=== PATIENT | male | born 1945 | race Caucasian/White ===

== ENCOUNTER → 2018-03-22 | Day surgery (SDC) | payer MEDICARE, OTHER ==
[~2018-03-22] MED LIST: BUPIVAC MPF-EPI 0.5%-1:200000 30 ML VIAL. ONE; LISI10TA2 PO; MECL25TA3 PO; SIMV10TA3 PO
[2018-03-22 12:43] VITALS: BP 129/76
--- NOTE | 2018-03-22 12:45 | PDOC ---
BRIEF OPERATIVE NOTE Date: Mar 22, 2018 Pre-Op Diagnosis skin lesion left calf Post-Op Diagnosis same Procedure Performed excision Surgeon Edgardo Anesthesia Type: Local Blood Loss minimal Specimens Obtained skin and subcutaneous tissue specimen 4x1.5x1 cm lesion 1x1x0.5 cm Findings no deep invasion Complications none Additional Remarks # [id number] MIMA CLEMENS MD Mar 22, 2018 12:45
--- NOTE | 2018-03-22 12:46 | DISCH ---
DISCHARGE INSTRUCTIONS-DC Condition on Discharge Condition on Discharge: Stable Activity after Discharge Activity Instructions for Disc: No restrictions Weight Bearing Status after Di: No restrictions Diet after Discharge Diet after Discharge: Regular Wound/Incision Care Wound/Incision Care: Ice to area for comfort Other wound/incision instructi: meghna wise Monday Follow-Up Follow up with: Edgardo next week MIMA CLEMENS MD Mar 22, 2018 12:46
--- NOTE | 2018-03-22 14:20 | OP ---
DATE OF SURGERY: 03/22/2018 PREOPERATIVE DIAGNOSIS: Skin lesion, left calf. POSTOPERATIVE DIAGNOSIS: Skin lesion, left calf. PROCEDURE: Excision of skin lesion, left calf. SURGEON: Mima Clemens MD ANESTHESIA: Local. SPECIMENS: Skin and subcutaneous tissue. SPECIMEN SIZE: 4 x 1.5 x 1 cm. LESION SIZE: 1 x 1 x 0.5 cm. DESCRIPTION OF PROCEDURE: The patient was brought to the operating suite, placed in the right lateral decubitus position, and the left calf prepped and draped in usual sterile fashion. The elliptical skin incision around the lesion, which had been made in preop with the patient's assistance was infiltrated with 0.5% Marcaine with epinephrine. Skin incised and the lesion removed intact. Hemostasis with cautery. Wound closed with interrupted inverted 3-0 Vicryl in the subcutaneous tissue, subcuticular 4-0 Monocryl with Steri-Strips for the skin. Sterile dressing applied. The patient tolerated procedure well and was taken back to the preop area in stable condition. MIMA CLEMENS MD DR: SARA/luis JOB#: [id number] / [id number]
--- NOTE | 2018-03-27 15:09 | PATHOLOGY ---
[facility] Accession Number: [id number] . 01 Material submitted: . EXCISION SKIN LESION, LEFT CALF . 01 Clinical history: . Skin lesion, left calf . 02 Diagnosis: Skin lesion, left calf, excision: - SQUAMOUS CELL CARCINOMA, WELL-DIFFERENTIATED. - Completely excised. . (MAP:[facility]; 03/27/18) [facility]03/[facility]2018 . 02 Comment: Co-review: Dr. Jessica Kennedy. . (MAP:[facility]; 03/27/18) . 02 Electronically signed: . Heron Orozco MD, Pathologist NPI- [id number] . 01 Gross description: . The specimen is received in formalin, labeled "Aldair Cash and skin lesion left calf", is an unoriented ellipse of salgado white skin 4.0 x 1.6 x 0.4 cm. The skin surface has a centrally located summers-white, firm lesion measuring 1.0 x 1.0 x 0.3 cm with central necrotic foci. The lesion is 0.2 cm from the closest peripheral margin. The specimen is inked black, serially section into 12 pieces to show a summers-white, friable cut surface for the lesion and the remaining summers-white. The specimen is entirely submitted in A1-A4 with lesion in A2 and tips in A4. ([facility]; 03/23/2018) [facility] . 02 Pathologist provided ICD-10: C44.629 . 02 CPT . 062829 Specimen Comment: A courtesy copy of this report has been sent to Specimen Comment: [phone], . Specimen Comment: Report sent to / DR HERNANDEZ Specimen Comment: Report updated to correct patient Specimen Comment: A duplicate report has been generated due to demographic update Specimen Comment: of the patient's Date of , Age, Gender, and/or Specimen Date. Specimen Comment: Please review patient results, reference intervals, and calculated Specimen Comment: results that may have been affected by this change. Performed at: [address] [id number] MD Lv Peng MD Phone: [phone] Performed at: 02 [facility] [id number] [place] [id number] MD Diamond Quinn MD Phone: [phone]
== END | disposition home or self-care (01) ==
LOC: SURG 11:11
PROVIDERS: ATTEND Surgery
DX: C44.729 Squamous cell carcinoma of skin of left lower limb, including hip (principal); I10 Essential (primary) hypertension; G47.33 Obstructive sleep apnea (adult) (pediatric); E78.5 Hyperlipidemia, unspecified; Z79.899 Other long term (current) drug therapy; Z86.010 Personal history of colon polyps; Z98.890 Other specified postprocedural states; Z83.3 Family history of diabetes mellitus; Z82.3 Family history of stroke; Z72.89 Other problems related to lifestyle; Z87.891 Personal history of nicotine dependence
CPT/HCPCS: 11601; 12031; 88305; J3490

== ENCOUNTER → 2020-04-23 | Outpatient (CLI) | payer MEDICARE, OTHER ==
[2018-03-22 12:43] VITALS: BP 129/76
[~2020-04-23] MED LIST changes: -BUPIVAC MPF-EPI 0.5%-1:200000 30 ML VIAL. ONE; +MECL-75 PO; -MECL25TA3 PO; +SIMV10TA15 PO; -SIMV10TA3 PO
--- NOTE | 2020-04-28 12:42 | NUR ---
IP: patient notified of COVID result.
== END ==
LOC: LAB 09:04
PROVIDERS: ATTEND Family Medicine
DX: Z20.828 Contact with and (suspected) exposure to other viral communicable diseases (principal)
CPT/HCPCS: U0003-CS

== ENCOUNTER 2020-08-19 10:57 | Emergency (ER) | payer MEDICARE, OTHER ==
[~2020-08-19] VITALS: Ht 177.8 cm; Wt 98.0 kg
[~2020-08-19 10:57] MED LIST changes: +LISI10TA16 PO; -LISI10TA2 PO
--- NOTE | 2020-08-19 11:21 | PHYS DOC ---
General Adult EDM: Chief Complaint: NEURO SYMPTOMS/DEFICITS HPI: HPI: History obtained from patient. Patient is a 75-year-old male with past medical history significant for hypertension who presents with chief complaint of left arm numbness. He states his symptoms began 60 minutes prior to arrival while at rest. He denies any headache or neck pain. 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 States the symptoms lasted 10 to 15 minutes and resolve spontaneously. States this is never happened before. Denies any history of stroke or TIA. Denies chest pain or shortness of breath. States he looked at himself in the mirror and did not see any facial droop. Denies confusion. Denies any difficulty ambulating. States he is right-handed. Denies history of carpal tunnel. Denies syncope. States he only takes lisinopril daily. Patient has no other complaints and states he feels completely back to baseline. Review of Systems: Review of Systems: Constitutional: Denies fever or chills Eyes: Denies change in visual acuity HENT: Denies nasal congestion or sore throat Respiratory: Denies cough or shortness of breath Cardiovascular: Denies chest pain or edema GI: Denies abdominal pain, nausea, vomiting, bloody stools or diarrhea : Denies dysuria Musculoskeletal: Denies back pain or joint pain Integument: Denies rash Neurologic: Positive for numbness Endocrine: Denies polyuria or polydipsia Lymphatic: Denies swollen glands Psychiatric: Denies depression or anxiety Allergies: Allergies: Allergies Coded Allergies Type Severity Reaction Last Updated Verified No Known Drug Allergies 03/21/18 No Physical Exam: PE: Constitutional: Well developed, well nourished, no acute distress, non-toxic appearance. [] HENT: Normocephalic, atraumatic, bilateral external ears normal, oropharynx moist, no oral exudates, nose normal. [] Eyes: PERRLA, EOMI, conjunctiva normal, no discharge. [] Neck: Normal range of motion, no tenderness, supple, no stridor. [] Cardiovascular:Heart rate regular rhythm, no murmur [] Lungs & Thorax: Bilateral breath sounds clear to auscultation [] Abdomen: soft, no tenderness, no masses, no pulsatile masses. [] Skin: Warm, dry, no erythema, no rash. [] Back: No tenderness, no CVA tenderness. [] Extremities: No tenderness, no cyanosis, no clubbing, ROM intact, no edema. [] Neurologic: Alert with intact cognitive function. No aphasia, dysarthria, or neglect. GCS 15. Pupils 4 mm briskly reactive b/l. No APD present. Cranial nerves 2-12 grossly intact; no facial asymmetry present, tongue midline, shoulder shrugging strength intact. Strength 5/5 and symmetric throughout. Light touch sensation intact throughout. Cerebellar testing appropriate without evidence of dysdiadochokinesia. DTR's 2+ in all 4 extremities. Negative pronator drift bilaterally. Gait normal Psychologic: Affect normal, judgement normal, mood normal. [] Current Patient Data: Labs: Laboratory Tests Test 08/19/20 12:00 White Blood Count 9.0 x10^3/uL Red Blood Count 4.49 x10^6/uL Hemoglobin 14.8 g/dL Hematocrit 45.2 % Mean Corpuscular Volume 101 fL Mean Corpuscular Hemoglobin 33 pg Mean Corpuscular Hemoglobin Concent 33 g/dL Red Cell Distribution Width 13.6 % Platelet Count 292 x10^3/uL Neutrophils (%) (Auto) 64 % Lymphocytes (%) (Auto) 27 % Monocytes (%) (Auto) 6 % Eosinophils (%) (Auto) 1 % Basophils (%) (Auto) 1 % Neutrophils # (Auto) 5.8 x10^3uL Lymphocytes # (Auto) 2.5 x10^3/uL Monocytes # (Auto) 0.6 x10^3/uL Eosinophils # (Auto) 0.1 x10^3/uL Basophils # (Auto) 0.1 x10^3/uL Sodium Level 140 mmol/L Potassium Level 4.8 mmol/L Chloride Level 104 mmol/L Carbon Dioxide Level 25 mmol/L Anion Gap 11 Blood Urea Nitrogen 18 mg/dL Creatinine 1.2 mg/dL Estimated GFR (Cockcroft-Gault) 59.3 Glucose Level 127 mg/dL Calcium Level 9.2 mg/dL Troponin I Quantitative < 0.017 ng/mL Current Medications Medications (Trade) Dose Ordered Sig/Lyle Route PRN Reason Start Time Stop Time Status Last Admin Dose Admin Aspirin (Lavinia Aspirin) 325 mg 1X ONCE PO 08/19/20 11:30 08/19/20 11:56 DC Aspirin (Aspirin Chewable) 243 mg 1X ONCE PO 08/19/20 12:00 08/19/20 12:01 DC 08/19/20 12:02 Iohexol (Omnipaque 350 Mg/ml) 100 ml 1X ONCE IV 08/19/20 12:45 08/19/20 12:46 DC 08/19/20 12:44 Info (Do NOT chart on this entry -- for MONITORING) 1 each PRN DAILY PRN MC SEE COMMENTS 08/19/20 12:45 08/21/20 12:44 Vital Signs: Vital Signs Date Time Temp Pulse Resp B/P (MAP) Pulse Ox O2 Delivery O2 Flow Rate FiO2 08/19/20 11:13 98.6 102 18 154/95 (114) 98 Room Air EKG: EKG: EKG consistent with normal sinus rhythm. Ventricular rate is 96 bpm. Mondovi normal. Intervals normal. No acute ischemic changes noted. [] Radiology/Procedures: Radiology/Procedures: [address] [address] IMAGING REPORT Signed PATIENT: ARVIND LOYA ACCOUNT: [id number] : 1945 LOCATION: ER AGE: 75 SEX: M EXAM STATUS: REG ER ORD. 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 One or more of the following individualized dose reduction techniques were utilized for this examination: 1. Automated exposure control 2. Adjustment of the mA and/or kV according to patient size 3. Use of iterative reconstruction technique. FINDINGS: The ventricles and sulci are normal. Dewitt-white matter differentiation is maintained. There is no intracranial hemorrhage, acute infarct, or mass lesion. Basal cisterns are clear. Calvarium is intact. Paranasal sinuses and mastoid air cells are clear. Globes and orbits are intact. IMPRESSION: No acute intracranial abnormality. FOR INTERNAL CODING PURPOSES Critical result: Findings discussed with the ER at 08/19/2020 11:34 AM. RESULT CODE: (C) Electronically signed by: Geovanna Garcia MD (08/19/2020 11:35 AM) [id number] DICTATED AND SIGNED BY: GEOVANNA GARCIA MD DATE: 08/19/20 1131 CC: GILAD HERNANDEZ MD; TORI HOYT DO ~MTH0 [address] [address] IMAGING REPORT Signed PATIENT: ARVIND LOYA ACCOUNT: [id number] : 1945 LOCATION: ER AGE: 75 SEX: M EXAM STATUS: REG ER ORD. PHYSICIAN: TORI HOYT DO REASON: L facial and LUE numbness. Resolved PROCEDURE: CT ANGIOGRAPHY HEAD AND NECK EXAM: CTA HEAD AND NECK W/WO CONTRAST DATE: 08/19/2020 12:39 PM INDICATION: Reason: L facial and LUE numbness. Resolved / Spl. Instructions: / History: TECHNIQUE: CTA angiogram of the head and neck was obtained after IV bolus administration of 100 cc of Omnipaque 350. The images were sent to workstation and multiplanar reconstructions were obtained. Multiplanar reconstruction images to include MIP and 3-D reconstruction images are submitted. One or more of the following dose reduction techniques were utilized: Automated exposure control (AEC), Adjustment of mA and/or kV according to patient size, Use of iterative reconstruction technique such as ASiR, CT scan done according to ALARA and image gently/image wisely COMPARISON: Noncontrast CT head done earlier the same day. FINDINGS: CTA Head: Atherosclerosis of the distal ICAs with less than 25 percent stenosis. The anterior and middle cerebral arteries are patent and normal caliber. origins of the bilateral preschool head teacher with a hypoplastic vertebrobasilar system, anatomic variant. The distal vertebral arteries, basilar artery, and posterior cerebral arteries are otherwise patent. No aneurysm or arteriovenous malformation is seen. CTA Neck: Right carotid: The right common carotid artery is patent and normal caliber. Mild atherosclerosis of the carotid bifurcation. No stenosis of the right internal carotid artery per NASCET criteria. The right external carotid artery is patent. Left carotid: The left common carotid artery is patent and normal caliber. Mild atherosclerosis of the carotid bifurcation. No stenosis of the left internal carotid artery per NASCET criteria. The left external carotid artery is patent. Right vertebral: The right vertebral artery is patent and normal caliber. Left vertebral: The left vertebral artery is patent and normal caliber. The visualized portions of the aortic arch are normal. The origins of the brachiocephalic and subclavian arteries are normal. No cervical lymphadenopathy. The thyroid gland is normal. The parotid and submandibular glands are normal. The visualized aerodigestive tract is unremarkable. Moderate multilevel degenerative disc height loss. Multilevel disc protrusions and marginal osteophytes results in multilevel spinal canal stenosis. Multilevel uncovertebral and facet arthrosis with multilevel neural foraminal narrowing. Centrilobular emphysema in the visualized lung apices. IMPRESSION: 1. No intracranial large vessel occlusion. 2. No stenosis of the cervical carotid or vertebral arteries. RS Compliance Statement - Stenosis calculations for CT, MR and conventional angiography are based upon measurement of the distal ICA diameter in accordance with the NASCET methodology. Electronically signed by: Lisseth Mcelroy MD (08/19/2020 1:17 PM) [id number] DICTATED AND SIGNED BY: LISSETH MCELROY MD DATE: 08/19/20 1310 CC: GILDA HERNANDEZ MD; TORI HOYT DO ~MTH0 0 [] Heart Score: Risk Factors: Risk Factors: DM, Current or recent (<one month) smoker, HTN, HLP, family history of CAD, obesity. Risk Scores: Score 0 - 3: 2.5% MACE over next 6 weeks - Discharge Home Score 4 - 6: 20.3% MACE over next 6 weeks - Admit for Clinical Observation Score 7 - 10: 72.7% MACE over next 6 weeks - Early Invasive Strategies Course & Med Decision Making: Course & Med Decision Making Pertinent Labs and Imaging studies reviewed. (See chart for details) [] Patient is a 75-year-old male who presents with chief complaint of transient left facial and left arm numbness that occurred 60 minutes prior to arrival. It lasted 10 to 15 minutes and resolve spontaneously. Initial vital signs normal. Initial NIH of 0. Patient is returned to baseline. Noncontrast head CT was obtained and was unremarkable. TPA will be deferred as the patient is currently asymptomatic. I did discuss case with neurologist Dr. Enciso. He recommended CT angio imaging of the head and neck. This also obtained and shows no critical stenosis or obvious abnormalities. Remainder of labs been unremarkable. Patient remains with an NIH of 0. After discussion with neurology they can eval uate the patient in their clinic this afternoon. Patient is agreeable to discharge and reporting directly to the neurologist office. Overall I do estimate the patient is a low risk ABCD score for TIA. He continues to remain asymptomatic. Full dose aspirin administered. Return precautions were discussed and understood. Patient states he will report directly to the neurologist. Stable for discharge. Dragon Disclaimer: Dragon Disclaimer: This electronic medical record was generated, in whole or in part, using a voice recognition dictation system. Departure Departure: Impression: Primary Impression: Left arm numbness Additional Impression: Left facial numbness Disposition: 01 DC HOME SELF CARE/HOMELESS Condition: STABLE Referrals: GILDA HERNANDEZ MD (PCP) MAURA ENCISO MD Patient Instructions: Transient Ischemic Attack Additional Instructions: Please report directly to Dr. Enciso's office upon discharge. NIHSS - ED NIH Stroke Scale: NIH Stroke Scale Response (Comments) Value Level of Consciousness: 0 Alert/Responsive 0 LOC Questions: 0 Answers both correctly 0 LOC Commands: 0 Performs both tasks 0 Best Gaze: 0 Normal 0 Visual: 0 No visual loss 0 Facial Palsy: 0 Normal, symmetrical 0 Motor - Left Arm 0 No drift 0 Motor - Right Arm 0 No drift 0 Motor - Left Leg 0 No drift 0 Motor: Right Leg 0 No drift 0 Limb Ataxia: 0 Absent 0 Sensory: 0 No loss 0 Best Language: 0 Normal 0 Dysathria: 0 Normal 0 Extinction and Inattention: 0 Normal 0 Total 0 TORI HOYT DO Aug 19, 2020 11:21
[2020-08-19] MEDS ORDERED: ASPIRIN 325 MG TABLET PO ONE (11:30)
--- NOTE | 2020-08-19 11:37 | RAD ---
EXAM: CT head without contrast INDICATION: Left arm numbness 60 minutes prior to arrival COMPARISON: None TECHNIQUE: Axial CT imaging through the head without intravenous contrast. One or more of the following individualized dose reduction techniques were utilized for this examinat ion: 1. Automated exposure control 2. Adjustment of the mA and/or kV according to patient size 3. Use of iterative reconstruction technique. FINDINGS: The ventricles and sulci are normal. Dewitt-white matter differentiation is maintained. There is no in tracranial hemorrhage, acute infarct, or mass lesion. Basal cisterns are clear. Calvarium is intact. Paranasal sinuses and mastoid air cells are clear. Globes and orbits are intact. IMPRESSION: No acute intracranial abnormality. FOR INTERNAL CODING PURPOSES Critical result: Findings discussed with the ER at 08/19/2020 11:34 AM. RESULT CODE: (C) Electronically signed by: Geovanna Garcia MD (08/19/2020 11:35 AM) [id number]
[2020-08-19] MEDS ORDERED: ASPIRIN CHEWABLE 81 MG TABLET. PO ONE (12:00)
--- NOTE | 2020-08-19 12:07 | RAD ---
EXAM: XR CHEST 1V 08/19/2020 11:21 AM CLINICAL INDICATION: Left arm numbness prior to arrival COMPARISON: None TECHNIQUE: AP upright view the chest FINDINGS: The heart and mediastinum are normal. Lungs are hypoexpanded. There are mild left basilar opacities along the diaphragm. The lungs are otherwise clear. No pleural effusion or pneumothorax. No acute osseous abnormality. IMPRESSION: Mild left basilar opacities, likely atelectasis. Electronically signed by: Geovanna Garcia MD (08/19/2020 12:05 PM) [id number]
[2020-08-19 12:18] LABS: BASO # 0.1 x10^3/uL (0.0-0.2); BASO % 1 % (0-3); EOS # 0.1 x10^3/uL (0.0-0.7); EOS % 1 % (0-3); HEMATOCRIT 45.2 % (39.0-53.0); HEMOGLOBIN 14.8 g/dL (13.0-17.5); LYMPH # 2.5 x10^3/uL (1.0-4.8); LYMPH % 27 % (24-48); MEAN CORPUSCULAR HEMOGLOBIN 33 pg (25-35); MEAN CORPUSCULAR HGB CONC 33 g/dL (31-37); MEAN CORPUSCULAR VOLUME 101 fL (79-100); MONO # 0.6 x10^3/uL (0.0-1.1); MONO % 6 % (0-9); NEUT # 5.8 x10^3uL (1.8-7.7); NEUT % 64 % (31-73); PLATELET COUNT 292 x10^3/uL (140-400); RED BLOOD COUNT 4.49 x10^6/uL (4.30-5.70); RED CELL DISTRIBUTION WIDTH 13.6 % (11.5-14.5)
[2020-08-19 12:28] LABS: CALCIUM 9.2 mg/dL (8.5-10.1); CREATININE 1.2 mg/dL (0.7-1.3); GFR 59.3; POTASSIUM 4.8 mmol/L (3.5-5.1)
[2020-08-19] MEDS ORDERED: IOHEXOL 350 MG/ML 100 ML VIAL. IV ONE (12:45)
[2020-08-19] MEDS ORDERED: CONTRAST GIVEN. MC PRN (12:45)
--- NOTE | 2020-08-19 13:20 | RAD ---
EXAM: CTA HEAD AND NECK W/WO CONTRAST DATE: 08/19/2020 12:39 PM INDICATION: Reason: L facial and LUE numbness. Resolved / Spl. Instructions: / History: TECHNIQUE: CTA angiogram of the head and neck was obtained after IV bolus administration of 100 cc of Omnipaque 350. The images were sent to workstation and multiplanar reconstructions were obtained. M ultiplanar reconstruction images to include MIP and 3-D reconstruction images are submitted. One or more of the following dose reduction techniques were utilized: Automated exposure control (AEC ), Adjustment of mA and/or kV according to patient size, Use of iterative reconstruction technique mendiola ch as ASiR, CT scan done according to ALARA and image gently/image wisely COMPARISON: Noncontrast CT head done earlier the same day. FINDINGS: CTA Head: Atherosclerosis of the distal ICAs with less than 25 percent stenosis. The anterior and middle cerebr al arteries are patent and normal caliber. origins of the bilateral spray drier with a hypoplastic rogelio tebrobasilar system, anatomic variant. The distal vertebral arteries, basilar artery, and posterior c erebral arteries are otherwise patent. No aneurysm or arteriovenous malformation is seen. CTA Neck: Right carotid: The right common carotid artery is patent and normal caliber. Mild atherosclerosis of the carotid bifurcation. No stenosis of the right internal carotid artery per NASCET criteria. The ri ght external carotid artery is patent. Left carotid: The left common carotid artery is patent and normal caliber. Mild atherosclerosis of th e carotid bifurcation. No stenosis of the left internal carotid artery per NASCET criteria. The left external carotid artery is patent. Right vertebral: The right vertebral artery is patent and normal caliber. Left vertebral: The left vertebral artery is patent and normal caliber. The visualized portions of the aortic arch are normal. The origins of the brachiocephalic and subclav jason arteries are normal. No cervical lymphadenopathy. The thyroid gland is normal. The parotid and submandibular glands are no rmal. The visualized aerodigestive tract is unremarkable. Moderate multilevel degenerative disc height loss. Multilevel disc protrusions and marginal osteophyt es results in multilevel spinal canal stenosis. Multilevel uncovertebral and facet arthrosis with mul tilevel neural foraminal narrowing. Centrilobular emphysema in the visualized lung apices. IMPRESSION: 1. No intracranial large vessel occlusion. 2. No stenosis of the cervical carotid or vertebral arteries. PQRS Compliance Statement - Stenosis calculations for CT, MR and conventional angiography are based u geraldine measurement of the distal ICA diameter in accordance with the NASCET methodology. Electronically signed by: Francisco Mcelroy MD (08/19/2020 1:17 PM) [id number]
[2020-08-19 13:29] VITALS: BP 151/80
--- NOTE | 2020-08-19 16:08 | EKG ---
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
== END 2020-08-19 13:30 | disposition home or self-care (01) ==
LOC: ER 10:57
DX: R20.0 Anesthesia of skin (principal); I10 Essential (primary) hypertension
CPT/HCPCS: 36415; 70450; 70496; 70498; 71045; 80048; 84484; 85025; 93005; 99285; Q9967